=== PATIENT | male | born 1950 | race Caucasian/White ===

== ENCOUNTER → 2024-08-01 12:48 | Outpatient (REF) | payer OTHER, SELFPAY | LOC: HWRAD 12:48 | PROVIDERS: ATTENDING PHYSICIAN Physician Assistant | DX: M79.605 Pain in left leg (principal); M25.562 Pain in left knee | CPT/HCPCS: 73560; 76882 ==

== ENCOUNTER → 2024-08-23 15:53 | Outpatient (REF) | payer OTHER, SELFPAY | LOC: RAD 15:53 | PROVIDERS: ATTENDING PHYSICIAN Physician Assistant; FAMILY PHYSICIAN Family Medicine | DX: M79.605 Pain in left leg (principal) | CPT/HCPCS: 73701; Q9967 ==

== ENCOUNTER → 2024-09-06 14:05 | Outpatient (REF) | payer OTHER, SELFPAY | LOC: RAD 14:05 | PROVIDERS: ATTENDING PHYSICIAN Nurse Practitioner Family | DX: R31.9 Hematuria, unspecified (principal) | CPT/HCPCS: 74178; Q9967 ==